=== PATIENT | male | born 1945 | race Caucasian/White ===

== ENCOUNTER → 2018-02-04 07:31 | Outpatient (CLI) | payer MEDICARE, OTHER, SELFPAY ==
[2018-02-04 09:32] LABS: Add Manual Diff / Slide Review NO; Basophils Percent Auto 1.9 % (0-2); Eosinophils Percent Auto 7.6 % (2-4); Hematocrit 43.1 % (41-53); Hemoglobin 14.7 g/dL (13.5-17.5); Lymphocytes Percent Auto 23.5 % (25-40); Monocytes Percent Auto 9.2 % (3-14); Neutrophils Absolute Auto 2400 /uL (3000-5900); Neutrophils Percent Auto 57.8 % (50-75); Platelet Count 248 X10^3/uL (150-400); Red Blood Cell Count 4.74 X10^6/uL (4.5-5.9); Red Cell Distribution Width 13.2 % (11.6-14.8); White Blood Cell Count 4.2 X10^3/uL (4.5-11.0)
[2018-02-04 09:36] LABS: Glucose Urine UA Negative (Normal); Nitrite Urine UA Negative (Negative); Protein Urine UA Negative (Negative); Specific Gravity Urine UA 1.025 (1.000-1.035); Urobilinogen Urine UA 0.2 mg/dL (Normal)
[2018-02-04 09:41] LABS: Bilirubin Urine UA Negative (Negative); Ketones Urine UA Negative (Negative); Leukocyte Esterase Urine UA Negative; Occult Blood Urine UA Negative (Negative)
[2018-02-04 09:44] LABS: Appearance Urine UA Clear; Color Urine UA Yellow; Culture Indicated Urine Cult Not Indicated; Urine Comments Microscopic Normal
[2018-02-04 10:03] LABS: Alanine Aminotransferase 40 IU/L (21-72); Albumin 4.2 g/dL (3.5-5.0); Albumin Globulin Ratio 1.4 (1.0-2.8); Alkaline Phosphatase 74 U/L (38-126); Aspartate Aminotransferase 28 IU/L (17-59); Bilirubin Total 0.6 mg/dL (0.2-1.3); Calcium 9.5 mg/dL (8.4-10.2); Cholesterol 116 mg/dL (140-199); Estimated Glomerular Filt Rate > 60.0 mL/min (>60); Globulin 2.9 g/dL (1.7-4.1); Glucose 99 mg/dL (80-110); HDL Cholesterol 48 mg/dL (40-60); HEMOLYSIS < 15 (0-50); LDL Cholesterol Calculated 51 mg/dL (<100); Potassium 4.8 mmol/L (3.4-5.1); Sodium 139 mmol/L (137-145); Total Protein 7.1 g/dL (6.3-8.2); Triglycerides 85 mg/dL (35-150)
[2018-02-04 10:28] LABS: Thyroid Stimulating Hormone 0.95 uIU/mL (0.47-4.68)
[2018-02-04 11:42] LABS: Prostate Specific Antigen Scrn 3.32 ng/mL (0.1-4.0)
== END ==
PROVIDERS: Family Provider Family Medicine; PCP Family Medicine; Visit Provider Family Medicine
DX: E78.2 Mixed hyperlipidemia (principal); I10 Essential (primary) hypertension
CPT/HCPCS: 80053; 80061; 81001; 84443; 85025; G0103

== ENCOUNTER → 2018-02-18 08:07 | Outpatient (CLI) | payer MEDICARE, OTHER, SELFPAY ==
--- NOTE | 2018-02-18 | DI.US.S_ITS ---
PROCEDURE: US ABD AORTA ANEURYSM SCREEN INDICATIONS: ESSENTIAL HYPERTENSION/MIXED HYPERLIPIDEMIA TECHNIQUE: Real time scanning was performed of the aorta and iliac arteries, with image documentation. COMPARISON: None. FINDINGS: Aorta: Proximal aortic diameter measures 1.7 cm. Mid-aorta measures 1.7 cm. Distal aortic diameter is 1.3 cm. Iliac arteries: Right common iliac artery measures 1.2 cm. Left common iliac artery measures 1.2 cm. IMPRESSION: Normal study. No aneurysm found. Dictated by: Helder Santamaria M.D. on 02/18/2018 at 9:10 Approved by: Helder Santamaria M.D. on 02/18/2018 at 9:12
== END ==
PROVIDERS: Family Provider Family Medicine; PCP Family Medicine; Visit Provider Family Medicine
DX: I10 Essential (primary) hypertension (principal); E78.2 Mixed hyperlipidemia
CPT/HCPCS: 76706

== ENCOUNTER → 2018-12-15 08:01 | Outpatient (CLI) | payer MEDICARE, SELFPAY ==
[2018-12-15 09:37] LABS: Alanine Aminotransferase 40 IU/L (21-72); Albumin 4.1 g/dL (3.5-5.0); Albumin Globulin Ratio 1.5 (1.0-2.8); Alkaline Phosphatase 71 U/L (38-126); Aspartate Aminotransferase 21 IU/L (17-59); Bilirubin Total 0.7 mg/dL (0.2-1.3); Blood Urea Nitrogen 17 mg/dL (9-20); Carbon Dioxide 29 mmol/L (22-32); Chloride 101 mmol/L (98-107); Cholesterol 128 mg/dL (140-199); Estimated Glomerular Filt Rate > 60.0 mL/min (>60); Globulin 2.8 g/dL (1.7-4.1); Glucose 108 mg/dL (80-110); HDL Cholesterol 48 mg/dL (40-60); HEMOLYSIS < 15 (0-50); LDL Cholesterol Calculated 40 mg/dL (<100); Potassium 4.1 mmol/L (3.4-5.1); Sodium 138 mmol/L (137-145); Total Protein 6.9 g/dL (6.3-8.2); Triglycerides 202 mg/dL (35-150)
[2018-12-15 09:39] LABS: Appearance Urine UA CLEAR; Bilirubin Urine UA NEGATIVE (NEGATIVE); Color Urine UA YELLOW; Glucose Urine UA NEGATIVE (Negative); Ketones Urine UA NEGATIVE (NEGATIVE); Leukocyte Esterase Urine UA NEGATIVE (NEGATIVE); Nitrite Urine UA NEGATIVE (Negative); Occult Blood Urine UA NEGATIVE (Negative); Protein Urine UA NEGATIVE (Negative); Specific Gravity Urine UA 1.025 (1.000-1.035); Urobilinogen Urine UA 0.2 E.U./dL (0.2)
[2018-12-15 09:59] LABS: Prostate Specific Antigen Scrn 2.65 ng/mL (0.1-4.0)
[2018-12-15 10:03] LABS: Thyroid Stimulating Hormone 1.16 uIU/mL (0.47-4.68)
== END ==
PROVIDERS: Family Provider Family Medicine; PCP Family Medicine; Visit Provider Family Medicine
DX: E78.5 Hyperlipidemia, unspecified (principal); I10 Essential (primary) hypertension; Z51.81 Encounter for therapeutic drug level monitoring; Z12.5 Encounter for screening for malignant neoplasm of prostate
CPT/HCPCS: 36415; 80053; 80061; 81003; 84443; G0103

== ENCOUNTER → 2020-02-11 08:23 | Outpatient (CLI) | payer MEDICARE, SELFPAY ==
[2020-02-11 09:58] LABS: Aspartate Aminotransferase 24 IU/L (17-59); BUN Creatinine Ratio 17.8 (6-22); Blood Urea Nitrogen 18 mg/dL (9-20); Calcium 9.3 mg/dL (8.4-10.2); Carbon Dioxide 27 mmol/L (22-32); Chloride 103 mmol/L (98-107); Cholesterol 126 mg/dL (140-199); Estimated Glomerular Filt Rate > 60.0 mL/min (>60); Glucose 106 mg/dL (80-110); HDL Cholesterol 53 mg/dL (40-60); HEMOLYSIS < 15 (0-50); LDL Cholesterol Calculated 58 mg/dL (<100); Potassium 4.5 mmol/L (3.4-5.1); Sodium 138 mmol/L (137-145); Triglycerides 75 mg/dL (35-150)
[2020-02-11 10:26] LABS: Prostate Specific Antigen 2.78 ng/mL (0.10-4.00)
== END ==
PROVIDERS: Family Provider Family Medicine; PCP Internal Medicine; Referring Provider Internal Medicine; Visit Provider Internal Medicine
DX: N40.0 Benign prostatic hyperplasia without lower urinary tract symptoms (principal); E78.2 Mixed hyperlipidemia
CPT/HCPCS: 36415; 80048; 80061; 84153; 84450

== ENCOUNTER → 2020-07-03 10:11 | Outpatient (CLI) | payer MEDICARE, SELFPAY ==
[2020-07-04 09:40] LABS: COVID19 Sendout Not Detected (Not Detect)
== END ==
PROVIDERS: Family Provider Family Medicine; PCP Internal Medicine; Visit Provider Nurse Practitioner
DX: Z11.59 Encounter for screening for other viral diseases (principal)
CPT/HCPCS: 87635

== ENCOUNTER 2020-07-06 09:21 | Day surgery (SDC) | payer MEDICARE, SELFPAY ==
--- NOTE | 2020-07-06 | PATH_ITS ---
[facility] Accession Number: [id number] . 01 Material submitted: . PART A: colon - ASCENDING COLON POLYPS X3 PART B: colon - TRANSVERSE COLON POLYP . 02 Diagnosis: A. Ascending Colon, Polyps x3, Biopsies: Tubular adenoma in 2 of 5 fragments. Sessile serrated adenoma in one fragment. Benign lymphoid aggregate in one fragment. . B. Transverse Colon, Polyp, Biopsy: Tubular adenoma. [facility] 07/08/2020 1636 Local . 02 Electronically signed: . Jes Loja MD, Pathologist NPI- [id number] . 01 Gross description: . A. Specimen A is received in formalin, labeled ascending colon polyp x3 and consists of four dick-pink fragments of soft tissue, measuring 1.0 x 0.8 x 0.3 cm in aggregate. The specimen is entirely submitted in cassette A1. B. Specimen B is received in formalin, labeled transverse colon polyp and consists of a 1.2 x 0.4 x 0.2 cm dick polyp. The margin is inked blue. The specimen is bisected and entirely submitted in cassette B1. (EA:[id number]) /[facility] 07/07/2020 1517 Local . 02 Pathologist provided ICD-10: D12.2, D12.3 . 02 CPT . 902619, 099978 Performed at: 01 [facility] [address] [id number] MD Stewart Ho MD Phone: [phone] Performed at: 02 [facility] [address] [place], [place] [id number] MD Jes Loja MD Phone: [phone]
--- NOTE | 2020-07-06 07:57 | PM.HP.1 ---
History of Present Illness History of Present Illness Date Patient Seen: 07/06/20 Chief complaint: COLONOSCOPY Narrative: 75-year-old male who is here for colon polyp surveillance. He has a family history of colon cancer in his father at age 60 Patient History Medical History (Updated 07/06/20 @ 09:05 by Chelsea Fowler RN) History of colon polyps (Acute) Surgical History Status post colonoscopy Family & Social History Family History (Updated 05/03/15 @ 00:00 by Conversion Provider) Father Cancer Tobacco & Substance use: Smoking Status Former smoker alcohol intake current Meds Home Medications and Allergies Home Medications Medication Instructions Recorded Confirmed Type pneumoc 13-elba conj-dip cr(PF) 0.5 0.5 ml IM ONCE #0.5 ml 12/09/18 12/09/18 Rx mL IM syringe atorvastatin 40 mg tablet 40 mg PO DAILY #90 tab 02/04/19 07/06/20 Rx metoprolol succinate 25 mg 25 mg PO DAILY #90 tab 02/09/19 07/06/20 Rx tablet,extended release 24 hr omeprazole 20 mg capsule,delayed 20 mg PO DAILY #90 cap 10/12/19 07/06/20 Rx release Allergies Allergy/AdvReac Type Severity Reaction Status Date / Time No Known Drug Allergies Allergy Verified 07/06/20 09:37 Exam Narrative Exam Narrative: General: Patient is well developed, not in apparent distress Cardiovascular: Regular rate and rhythm, no murmurs, rubs, or gallops; no evidence of edema; no palpable abdominal aortic aneurysm Gastrointestinal: Normoactive bowel sounds, soft, nontender, nondistended, no rebound tenderness, no hepatosplenomegaly, no evidence of hernia Assessment & Plan Assessment & Plan narrative: 75-year-old male with a family history of colon cancer, and personal history of colon polyps who is here for polyp surveillance Regarding the procedure(s), the risks and potential complications, benefits, and alternatives (including not doing the procedure) were discussed with the patient. The risks include but are not limited to bleeding, splenic injury, infection, perforation which may require surgical intervention, missed lesions, and adverse reactions to sedative medicines. After a question and answer period, the patient agreed to proceed with the procedure(s) and gives informed consent.
[2020-07-06] MEDS: SODIUM CHLORIDE 0.9% 1,000 ML 70 ML IV (09:36)
[2020-07-06 09:43] VITALS: BP 177/86; PULSE 73; RESP 20; TEMP 36.8; O2SAT 97; BMI 25.5
--- NOTE | 2020-07-06 10:13 | P.OP.ENDO_ITS ---
Operative Date/Time/Diagnoses Date of procedure: 07/06/20 Procedure Notes Procedure in detail: Surgeon: Orlando Bermudez MD Procedure: Colonoscopy with polypectomy Preoperative diagnosis: Colon polyp surveillance; family history of colon cancer in father (60) Postoperative diagnosis: Colon polyps x4 status post polypectomy; transverse, descending, and sigmoid diverticulosis; grade 1 internal hemorrhoids Medications: Conscious sedation using 4 mg IV of Midazolam and 100 mcg IV of F entanyl Preanesthesia Assessment An H and P was performed/updated and the Px?s ASA class is 2. The procedure was discussed in detail with the patient. The potential risks and complications including infection, bleeding, missed lesions, perforation, need for surgery in case of perforation, prolonged hospital stay, and were explained. A brief question and answer period was allotted and once all questions were answered, informed consent was obtained. The patient was brought back to the procedure room and placed on standard monitoring. The patient?s vital signs were monitored continuously throughout the entire procedure. Prior to starting, a timeout was performed to confirm the patient?s identity, allergies, medications, and procedure. Procedure in detail The patient was placed in left lateral decubitus position and once adequate sedation was obtained a HILARY was performed. The digital rectal examination did not reveal any palpable lesions. The tip of the colonoscope was placed in the anal canal and advanced without difficulty all the way to the cecum which was identified by the appendiceal orifice and the ileocecal valve. Careful examination of all ansari of the colon was performed with irrigation of any residual stool. In the ascending colon, a 6 mm sessile polyp was removed by means of cold snare. Resection and retrieval was complete with minimal bleeding In the ascending colon, 2 sessile polyps measuring 1-2 mm were removed by means of cold Jumbo forceps. Resection and retrieval was complete with minimal bleeding In the transverse colon, a 5 mm sessile polyp was removed by means of cold snare. Resection and retrieval was complete with minimal bleeding In the transverse, descending, and sigmoid colon there was note of multiple medium-sized diverticula Retroflexion was performed in the rectum which revealed grade 1 internal hemorrhoids The patient tolerated the procedure well and will be brought back to the recovery area to be discharged once criteria are met. The prep was judged to be good and adequate to identify polyps less than 5 mm. The withdrawal time was 9 minutes. The total physician intraservice time was 12 minutes. Complications There were no complications and estimated blood loss was minimal. Recommendations: Resume previous diet Continue outPx medications Follow up pathology results Repeat colonoscopy in 3 or 5 years depending on pathology results An emergency contact number was given to the patient for any complications related to the procedure
[2020-07-06] MEDS: fentaNYL 250 MCG/5 ML INJ IV (10:19)
[2020-07-06] MEDS: MIDAZOLAM 5 MG/5 ML VIAL IV (10:19)
[2020-07-06 10:36] VITALS: BP 136/74; PULSE 59; RESP 17; TEMP 36.6; O2SAT 94
[2020-07-06 10:41] VITALS: BP 125/72; PULSE 57; RESP 16; O2SAT 94
[2020-07-06 10:54] VITALS: BP 136/77; PULSE 60; RESP 12; TEMP 36.9; O2SAT 96
[2020-07-06 11:10] VITALS: BP 126/74; PULSE 58; RESP 20; TEMP 36.8; O2SAT 96
== END 2020-07-06 11:15 | disposition home or self-care (01) ==
PROVIDERS: Family Provider Family Medicine; PCP Internal Medicine; Referring Provider Internal Medicine; Visit Provider Internal Medicine Gastroenterology
PROC: 0DJD8ZZ Inspection of Lower Intestinal Tract, Via Natural or Artificial Opening Endoscopic (ICD-10-PCS; CPT 45378; principal; 2020-07-06 10:30)
DX: Z12.11 Encounter for screening for malignant neoplasm of colon (principal); Z80.0 Family history of malignant neoplasm of digestive organs; Z86.010 Personal history of colon polyps; D12.3 Benign neoplasm of transverse colon; D12.2 Benign neoplasm of ascending colon; K57.30 Diverticulosis of large intestine without perforation or abscess without bleeding; K64.0 First degree hemorrhoids
CPT/HCPCS: 45385; 45380; J2250; J3010

== ENCOUNTER → 2020-11-01 17:06 | Outpatient (CLI) | payer MEDICARE, SELFPAY ==
[2020-11-01] MEDS: COVID-19 VACC #1, MRNA(MOD) 100 MCG/0.5 ML VIAL IM (17:12)
== END ==
PROVIDERS: Family Provider Family Medicine; PCP Internal Medicine; Visit Provider Internal Medicine
DX: Z23 Encounter for immunization (principal)
CPT/HCPCS: 0011A; 91301

== ENCOUNTER → 2020-11-30 09:55 | Outpatient (CLI) | payer MEDICARE, SELFPAY ==
[2020-11-30] MEDS: COVID-19 VACC #2, MRNA(MOD) 100 MCG/0.5 ML VIAL IM (10:02)
== END ==
PROVIDERS: Family Provider Family Medicine; PCP Internal Medicine; Visit Provider Internal Medicine
DX: Z23 Encounter for immunization (principal)
CPT/HCPCS: 0012A; 91301

== ENCOUNTER → 2021-01-24 18:49 | Outpatient (ROUT) | payer MEDICARE, SELFPAY ==
[2021-01-24 19:29] LABS: Aspartate Aminotransferase 29 IU/L (17-59); BUN Creatinine Ratio 17.2 (6-22); Blood Urea Nitrogen 16 mg/dL (9-20); Calcium 9.9 mg/dL (8.4-10.2); Carbon Dioxide 26 mmol/L (22-32); Chloride 107 mmol/L (98-107); Cholesterol 142 mg/dL (140-199); Estimated Glomerular Filt Rate > 60.0 mL/min (>60); Glucose 97 mg/dL (80-110); HDL Cholesterol 58 mg/dL (40-60); HEMOLYSIS < 15 (0-50); LDL Cholesterol Calculated 55 mg/dL (<100); Potassium 4.1 mmol/L (3.4-5.1); Sodium 139 mmol/L (137-145); Triglycerides 145 mg/dL (35-150)
[2021-01-24 19:56] LABS: Prostate Specific Antigen 2.89 ng/mL (0.10-4.00)
== END ==
PROVIDERS: Family Provider Family Medicine; PCP Internal Medicine; Visit Provider Internal Medicine
DX: I10 Essential (primary) hypertension (principal); E78.2 Mixed hyperlipidemia; N40.1 Benign prostatic hyperplasia with lower urinary tract symptoms
CPT/HCPCS: 80048; 80061; 84153; 84450

== ENCOUNTER → 2023-05-27 14:16 | Outpatient (CLI) | payer MEDICARE, SELFPAY ==
[2023-05-27 15:17] LABS: Hematocrit 42.3 % (41-53); Hemoglobin 14.4 g/dL (13.5-17.5); Mean Corpuscular Hemoglobin 31.8 PG (26-34); Mean Corpuscular Volume 93.5 fL (80-100); Platelet Count 187 X10^3/uL (150-400); Red Blood Cell Count 4.52 X10^6/uL (4.5-5.9); Red Cell Distribution Width 13.9 % (11.6-14.8); White Blood Cell Count 6.1 X10^3/uL (4.5-11.0)
[2023-05-27 15:32] LABS: Alanine Aminotransferase 30 IU/L (<50); Albumin 4.3 g/dL (3.5-5.0); Albumin Globulin Ratio 1.7 (1.0-2.8); Alkaline Phosphatase 77 U/L (38-126); Aspartate Aminotransferase 26 IU/L (17-59); BUN Creatinine Ratio 15.5 (6-22); Bilirubin Total 0.6 mg/dL (0.2-1.3); Blood Urea Nitrogen 17 mg/dL (9-20); Calcium 9.5 mg/dL (8.4-10.2); Carbon Dioxide 29 mmol/L (22-32); Chloride 103 mmol/L (98-107); Cholesterol 144 mg/dL (140-199); Estimated Glomerular Filt Rate > 60 mL/min (>60); Globulin 2.6 g/dL (1.7-4.1); Glucose 85 mg/dL (80-110); HDL Cholesterol 66 mg/dL (40-60); HEMOLYSIS < 15 (0-50); LDL Cholesterol Calculated 53 mg/dL (<100); Sodium 139 mmol/L (137-145); Total Protein 6.9 g/dL (6.3-8.2); Triglycerides 127 mg/dL (35-150)
[2023-05-27 16:01] LABS: Prostate Specific Antigen 3.37 ng/mL (0.10-4.00)
[2023-05-27 16:02] LABS: TSH w/ Reflex to FT4 1.07 uIU/mL (0.47-4.68)
== END ==
PROVIDERS: Family Provider Family Medicine; PCP Internal Medicine; Referring Provider Internal Medicine; Visit Provider Internal Medicine
DX: I10 Essential (primary) hypertension (principal); N40.1 Benign prostatic hyperplasia with lower urinary tract symptoms; E78.2 Mixed hyperlipidemia; N13.8 Other obstructive and reflux uropathy
CPT/HCPCS: 36415; 80053; 80061; 84153; 84443; 85027

== ENCOUNTER 2023-08-05 10:29 | Day surgery (SDC) | payer MEDICARE, SELFPAY ==
--- NOTE | 2023-08-05 | PATH_ITS ---
[facility] Accession Number: [id number] No. of containers..02 Tissue . 01 Material submitted: . PART A: colon - ASCENDING COLON BIOPSY PART B: colon - TRANSVERSE COLON POLYP . 01 Diagnosis: A. Ascending Colon, Biopsy: Tubular adenoma. . B. Transverse Colon, Polyp: Tubular adenoma. [facility] 08/09/2023 1515 Local . 01 Electronically signed: . Jes Loja MD, Pathologist NPI- [id number] . 01 Gross description: . Part A: ASCENDING COLON BIOPSY: Received in formalin is 1 fragment(s) of dick, soft tissue measuring 0.5 x 0.3 x 0.3 cm submitted entirely in 1 cassette(s) Part B: TRANSVERSE COLON POLYP: Received in formalin is 1 fragment(s) of dick, soft tissue measuring 0.4 x 0.3 x 0.2 cm submitted entirely in 1 cassette(s) /[facility] 08/06/2023 1836 Local . 01 Pathologist provided ICD-10: D12.3, D12.2 . 01 CPT . 112039, 313923 Specimen Comment: A courtesy copy of this report has been sent to [phone] Performed at: 01 [facility] [address] [place] [address] [address] [facility], [place], [place] [id number] MD Stewart Ho MD Phone: [phone]
[2023-08-05 10:51] VITALS: BP 138/84; PULSE 77; RESP 16; TEMP 36.2; O2SAT 95; BMI 25.2
--- NOTE | 2023-08-05 11:01 | P.HP_ITS ---
History of Present Illness History of Present Illness Date Patient Seen: 08/05/23 Time Patient Seen: 11:02 Chief complaint: Colonoscopy Narrative: 78-year-old male here for colon polyp surveillance. The last exam was a little over 3 years ago and he had multiple adenomas removed. [facility] Medical History History of colonic polyps BPH w urinary obs/LUTS Erectile dysfunction GERD without esophagitis Mixed hyperlipidemia Essential hypertension Actinic keratosis (~2016) Tinnitus (~1969) Hearing loss (~1969) Cataracts, bilateral (~2021) Kidney stones (~1977) Hemorrhoid (~2012) Diverticular disease (~2012) Skin cancer (~1999) History of colon polyps (~2019) Surgical History Anesthesia History of cataract removal with insertion of prosthetic lens (~09/2022) Status post Mohs surgery Status post colonoscopy Family History Father Cancer Mother Pneumonia Brother History of heart disease Sister Infection Grandfather Stroke Social History details: (Pat), 1 son, retired [employer] household members: spouse Smoking Status: Former smoker Tobacco: How many years used: 10 alcohol intake: current Meds Home Medications and Allergies Home Medications Medication Instructions Recorded Confirmed Type atorvastatin 40 mg tablet 40 mg PO DAILY #90 tabs 05/27/23 05/27/23 Rx metoprolol succinate 25 mg 25 mg PO DAILY #90 tabs 05/27/23 05/27/23 Rx tablet,extended release 24 hr omeprazole 20 mg capsule,delayed 20 mg PO DAILY #90 caps 05/27/23 05/27/23 Rx release tadalafil 20 mg tablet 20 mg PO DAILY PRN ED #10 tabs 05/27/23 05/27/23 Rx Allergies Allergy/AdvReac Type Severity Reaction Status Date / Time No Known Drug Allergies Allergy Verified 08/05/23 10:41 Review of Systems Review of Systems ROS: Yes All systems reviewed with the patient and are negative except as otherwise documented Exam Const General: cooperative HENMT Head: normal to inspection Eyes General: appearance normal, both eyes and all related structures Neck Neck: normal visual inspection Chest Chest: normal inspection of the chest Resp Effort & Inspection: normal respiratory effort Cardio Rate: regular rate GI Inspection: normal to inspection Skin General: no rashes or lesions noted Neuro General: patient alert and patient awake Extrem General: normal to inspection and no pedal edema Psych Appearance: grossly normal Assessment & Plan Assessment & Plan narrative: 78-year-old male with a personal history of colon polyps. Colonoscopy is pursued today.
[2023-08-05] MEDS: LACTATED RINGERS 1,000 ML 150 ML IV (11:02)
--- NOTE | 2023-08-05 11:03 | PM.PREOP ---
Pre-operative Note Interval Note History & Physical reviewed/Exam performed by Physician: Yes Changes to H&P: No ASA Class (for procedural sedation): II
--- NOTE | 2023-08-05 11:51 | PM.OP.COLON ---
Operative Date/Time/Diagnoses Date of procedure: 08/05/23 Time of procedure: 11:51 Pre-op diagnosis: Prior history of colon polyps Post-op diagnosis: same Procedure & Clinicians Study performed: Colonoscopy with hot snare polypectomy Same procedure as scheduled: Yes Indications: Prior history of colon polyps Surgeon: Jimmie Frank Procedure Notes SCOAP/Timeout: Done Procedure in detail: After the risks and benefits were explained, written and verbal informed consent was obtained. The patient was brought into the procedure room and placed into the left lateral decubitus position. Please see anesthesia note for sedation details. Digital rectal examination was accomplished. The scope was introduced into the patient and advanced under direct visualization to the cecum as identified by the appendiceal orifice and ileocecal valve. The scope was slowly withdrawn to carefully examine the mucosa for any defects or lesions. Comprehensive imaging was accomplished throughout the rectum including the dentate line. The colon was decompressed, the scope was then removed from the patient who tolerated the procedure well. Adult colonoscope Bowel prep adequate Scope withdrawal time: 10 minutes Sedation minutes: 14 Complications: none Impression: The patient had rather extensive diverticulosis all throughout the left colon. Grade 2 internal nonbleeding nonthrombosed hemorrhoids were noted. In the ascending colon there was a 6 mm polyp removed with hot snare. In the transverse colon there was a 7 mm eroded polyp removed with hot snare. No additional pathology was appreciated throughout. Endoscopic diagnosis 1. Diverticulosis 2. Grade 2 hemorrhoids 3. Colon polyps Post-procedure Plan for aftercare: 1. Await histopathology. 2. The timing of a recommended surveillance colonoscopy will be contingent on pathology results. Disposition: PACU
[2023-08-05 11:54] VITALS: BP 129/85; PULSE 64; RESP 26; TEMP 36.2; O2SAT 95
[2023-08-05 11:58] VITALS: BP 129/85; PULSE 53; RESP 19; O2SAT 96
[2023-08-05 12:04] VITALS: BP 165/90; PULSE 65; RESP 21; O2SAT 96
[2023-08-05 12:09] VITALS: BP 161/90; PULSE 56; RESP 21; O2SAT 97
[2023-08-05 12:10] VITALS: TEMP 36.4
== END 2023-08-05 12:28 | disposition home or self-care (01) ==
PROVIDERS: Family Provider Family Medicine; PCP Internal Medicine; Referring Provider Internal Medicine Gastroenterology; Visit Provider Internal Medicine Gastroenterology
PROC: 0DJD8ZZ Inspection of Lower Intestinal Tract, Via Natural or Artificial Opening Endoscopic (ICD-10-PCS; CPT 45378; principal; 2023-08-05 13:00)
DX: Z12.11 Encounter for screening for malignant neoplasm of colon (principal); Z86.010 Personal history of colon polyps; K57.30 Diverticulosis of large intestine without perforation or abscess without bleeding; K64.1 Second degree hemorrhoids; D12.2 Benign neoplasm of ascending colon; D12.3 Benign neoplasm of transverse colon
CPT/HCPCS: 45385; J2704

== ENCOUNTER → 2023-11-21 10:34 | Outpatient (CLI) | payer MEDICARE, SELFPAY ==
[2023-11-21 12:33] LABS: Aspartate Aminotransferase 25 IU/L (17-59); BUN Creatinine Ratio 15.1 (6-22); Blood Urea Nitrogen 16 mg/dL (9-20); Calcium 9.7 mg/dL (8.4-10.2); Carbon Dioxide 28 mmol/L (22-32); Chloride 102 mmol/L (98-107); Cholesterol 126 mg/dL (140-199); Estimated Glomerular Filt Rate > 60 mL/min (>60); Glucose 93 mg/dL (80-110); HDL Cholesterol 55 mg/dL (40-60); HEMOLYSIS < 15 (0-50); LDL Cholesterol Calculated 51 mg/dL (<100); Potassium 4.2 mmol/L (3.4-5.1); Sodium 140 mmol/L (137-145); Triglycerides 99 mg/dL (35-150)
== END ==
PROVIDERS: Family Provider Family Medicine; PCP Internal Medicine; Referring Provider Internal Medicine; Visit Provider Internal Medicine
DX: E78.2 Mixed hyperlipidemia (principal); N40.1 Benign prostatic hyperplasia with lower urinary tract symptoms; N13.8 Other obstructive and reflux uropathy; I10 Essential (primary) hypertension
CPT/HCPCS: 36415; 80048; 80061; 84153; 84450

== ENCOUNTER → 2024-02-17 14:42 | Outpatient (CLI) | payer MEDICARE, SELFPAY | PROVIDERS: Family Provider Family Medicine; PCP Internal Medicine; Referring Provider Internal Medicine; Visit Provider Internal Medicine | DX: R97.20 Elevated prostate specific antigen [PSA] (principal) | CPT/HCPCS: 36415; 84153; 84154 ==

== ENCOUNTER → 2024-02-26 13:56 | Outpatient (CLI) | payer MEDICARE, SELFPAY ==
[2024-02-26 15:37] LABS: Prostate Specific Antigen 3.81 ng/mL (0.10-4.00)
[2024-02-28 08:13] LABS: PSA, Total 3.7 ng/mL (0.0-4.0)
== END ==
PROVIDERS: Family Provider Family Medicine; PCP Internal Medicine; Referring Provider Internal Medicine; Visit Provider Internal Medicine
DX: R97.20 Elevated prostate specific antigen [PSA] (principal); N40.1 Benign prostatic hyperplasia with lower urinary tract symptoms; N13.8 Other obstructive and reflux uropathy
CPT/HCPCS: 84153; 84154

== ENCOUNTER → 2025-03-11 15:06 | Outpatient (CLI) | payer MEDICARE, SELFPAY ==
[2025-03-11 15:38] LABS: Hematocrit 47.1 % (41-53); Hemoglobin 15.9 g/dL (13.5-17.5); Mean Corpuscular HGB Conc 33.7 % (30-36); Mean Corpuscular Hemoglobin 31.7 PG (26-34); Platelet Count 185 X10^3/uL (150-400); Red Blood Cell Count 5.01 X10^6/uL (4.5-5.9); Red Cell Distribution Width 13.5 % (11.6-14.8); White Blood Cell Count 5.8 X10^3/uL (4.5-11.0)
[2025-03-11 15:42] LABS: Aspartate Aminotransferase 28 IU/L (17-59); BUN Creatinine Ratio 17.4 (6-22); Blood Urea Nitrogen 20 mg/dL (9-20); Calcium 9.5 mg/dL (8.4-10.2); Carbon Dioxide 27 mmol/L (22-32); Chloride 104 mmol/L (98-107); Cholesterol 142 mg/dL (140-199); Estimated Glomerular Filt Rate > 60 mL/min (>60); Glucose 98 mg/dL (70-99); HDL Cholesterol 60 mg/dL (40-60); HEMOLYSIS < 15 (0-50); LDL Cholesterol Calculated 43 mg/dL (<100); Potassium 4.2 mmol/L (3.4-5.1); Sodium 139 mmol/L (137-145); Triglycerides 197 mg/dL (35-150)
[2025-03-11 16:12] LABS: Prostate Specific Antigen 4.01 ng/mL (0.10-4.00)
[2025-03-11 16:14] LABS: TSH w/ Reflex to FT4 0.97 uIU/mL (0.47-4.68)
== END ==
PROVIDERS: PCP Internal Medicine; Referring Provider Internal Medicine; Visit Provider Internal Medicine
DX: N13.8 Other obstructive and reflux uropathy (principal); I10 Essential (primary) hypertension; N40.1 Benign prostatic hyperplasia with lower urinary tract symptoms; E78.2 Mixed hyperlipidemia
CPT/HCPCS: 36415; 80048; 80061; 84153; 84443; 84450; 85027